=== PATIENT | female | born 1955 ===

== ENCOUNTER 2017-06-20 06:46 | Day surgery (SDC) | payer MEDICAID ==
[2017-06-20 07:12] VITALS: BMI 28.1
[2017-06-20] MEDS ORDERED: Propofol 10 mg/ml Inj (20 ML) ONE (09:08)
[2017-06-20] MEDS ORDERED: Lidocaine Hydrochloride 5 ML INJ ONE (09:08)
[2017-06-20] MEDS ORDERED: Lactated Ringer's 1,000 ML IV ONE (09:12)
[2017-06-20 09:46] VITALS: TEMP 96.9; O2SAT 100
[2017-06-20 10:29] VITALS: BP 110/74; PULSE 54; RESP 13
== END 2017-06-20 10:25 | disposition home or self-care (01) ==
LOC: C.ENDO 06:46
PROVIDERS: ATTEND Internal Medicine Gastroenterology
DX: K62.5 Hemorrhage of anus and rectum (principal); K64.8 Other hemorrhoids
CPT/HCPCS: 45378; J2704; J7120